=== PATIENT | male | born 1990 | race American Indian/Alaskan Native ===

== ENCOUNTER 2017-03-12 10:07 | Emergency (ER) | payer SELFPAY ==
[2017-03-12 10:13] VITALS: BP 116/73
--- NOTE | 2017-03-12 10:34 | Emergency Department Report ---
ED Dysuria HPI - HPI Chief Complaint: Pain General Stated Complaint: TINGLE WHEN URINATE Time Seen by Provider: 03/12/17 10:28 Duration: 2 Days Location of Discomfort: Other Severity: Mild Symptoms: Dysuria: Yes, Frequency: No, Suprapubic Pain: No, Flank Pain: No, Fever: No, Hematuria: No, Abdominal Pain: No, Previous UTI's: No Other History: NEW SEXUAL PARTNER 1 M AGO. NO DC. TINGLE W URINATION. CO KNEE PAIN OLD INJURY ED Review of Systems ROS: Stated complaint: LEFT KNEE PAIN Other details as noted in HPI Comment: All other systems reviewed and negative Genitourinary: other (TINGLE W URINATION) Musculoskeletal: other (L KNEE PAIN) ED Past Medical Hx - Past Medical History Previous Medical History?: No - Surgical History Past Surgical History?: No - Social History Smoking Status: Current Every Day Smoker Substance Use Type: Alcohol, Marijuana - Medications Home Medications: Home Medications Medication Instructions Recorded Confirmed Last Taken Type Cephalexin [Keflex] 500 mg PO TID #30 capsule 11/18/15 Unknown Rx Dysuria Exam - Exam General: Vital signs noted. No distress. Alert and acting appropriately. WDWN MALE AMBULATORY NO NEURO DEF KNEE FULL ROM GOOD PULSES NO EFFUSION OR SWELLING NO CREP NO SWELLING DISTAL GOOD PULSES RAPID CAP REFILL TINGLE W URINATION NO DC NEW SEX PARTNER Exam: Yes Moist Mucous Membranes, No CVA Tenderness, No Abdominal Tenderness, No Rigidity or Guarding ED Course Vital Signs 03/12/17 10:09 Temperature 98.1 F Pulse Rate 79 Respiratory 16 Rate Blood Pressure 116/73 O2 Sat by Pulse 100 Oximetry - Reevaluation(s) Reevaluation #1: 03/12/17 11:45 URINARY TINGLING NEW SEX PARTNER UA AND GC SENT PT CONCERNED FOR STD AND WANTS TX NO ABD PAIN NO CVA TENDERNESS NO RASH NO DC NO LESION Reevaluation #2: 03/12/17 11:47 CELL [id number] ED Medical Decision Making - Medical Decision Making SEE NOTE - Differential Diagnosis STI Critical care attestation.: If time is entered above; I have spent that time in minutes in the direct care of this critically ill patient, excluding procedure time. ED Disposition Clinical Impression: STD (male) Disposition: DC-01 TO HOME OR SELFCARE Is pt being admited?: No Does the pt Need Aspirin: No Condition: Stable Instructions: Safe Sex (ED) Referrals: PRIMARY CARE,MD [Primary Care Provider] - 3-5 Days ALY GARAY MD [Staff Physician] - 3-5 Days Time of Disposition: 11:46
[2017-03-12] MEDS ORDERED: ROCEPHIN IM ONE (11:45)
[2017-03-12] MEDS ORDERED: XYLOCAINE 1% MPF 5 mL INFILTRATI ONE (11:45)
[2017-03-12] MEDS ORDERED: ZITHROMAX PO ONE (11:45)
[2017-03-12 12:14] LABS: Bacteria,Urine 1+ /HPF (Negative); Bilirubin,Urine NEG (Negative); Blood,Urine NEG (Negative); Ketones,Urine NEG (Negative); Leukocyte Esterase,Urine MOD (Negative); Nitrite,Urine NEG (Negative); Protein,Urine <15 mg/dL mg/dL (Negative); Urobilinogen,Urine < 2.0 mg/dL (<2.0)
== END 2017-03-12 12:20 | disposition home or self-care (01) ==
LOC: ED 10:07
DX: A64 Unspecified sexually transmitted disease (principal); F17.200 Nicotine dependence, unspecified, uncomplicated; F12.10 Cannabis abuse, uncomplicated
CPT/HCPCS: 81001; 87591; 96372; 99282; J0696

== ENCOUNTER 2017-08-03 19:17 | Emergency (ER) | payer SELFPAY ==
[2017-08-03 22:11] VITALS: BP 112/55
--- NOTE | 2017-08-04 01:39 | Emergency Department Report ---
ED Male HPI - General Chief complaint: Urogenital-Male Stated complaint: PARTNER DXD WITH TRICH Time Seen by Provider: 08/04/17 00:40 Source: patient Mode of arrival: Ambulatory Limitations: No Limitations - History of Present Illness Initial comments: This is a 26 y.o. male that presents for treatment of STD exposure. Patient states his partner was diagnosed with trichomoniasis. He is requesting treatment for possible exposure. Denies penile discharge, dysuria, frequency, urgency, fever, pelvic pain, or low back pain. Radiation: none Severity scale (0 -10): 0 Improves with: none Worsens with: none new sexual partner denies other symptoms - Related Data Sexually active: Yes Previous Rx's Medication Instructions Recorded Last Taken Type Cephalexin [Keflex] 500 mg PO TID #30 capsule 11/18/15 Unknown Rx Allergies Allergy/AdvReac Type Severity Reaction Status Date / Time No Known Allergies Allergy Unverified 11/18/15 18:00 ED Review of Systems ROS: Stated complaint: PARTNER DXD WITH TRICH Other details as noted in HPI Constitutional: denies: chills, fever Respiratory: denies: cough, shortness of breath, wheezing Cardiovascular: denies: chest pain, palpitations Gastrointestinal: denies: abdominal pain, nausea, diarrhea Genitourinary: denies: urgency, dysuria Neurological: denies: headache, weakness, paresthesias Psychiatric: denies: anxiety, depression ED Past Medical Hx - Past Medical History Previous Medical History?: No - Surgical History Past Surgical History?: No - Social History Smoking Status: Never Smoker Substance Use Type: None - Medications Home Medications: Home Medications Medication Instructions Recorded Confirmed Last Taken Type Cephalexin [Keflex] 500 mg PO TID #30 capsule 11/18/15 Unknown Rx ED Physical Exam - General Limitations: No Limitations General appearance: alert, in no apparent distress - Respiratory Respiratory exam: Present: normal lung sounds bilaterally. Absent: respiratory distress, wheezes, rales, rhonchi, stridor, accessory muscle use, decreased breath sounds - Cardiovascular Cardiovascular Exam: Present: regular rate, normal rhythm, normal heart sounds. Absent: systolic murmur, diastolic murmur, rubs, gallop - GI/Abdominal GI/Abdominal exam: Present: soft, normal bowel sounds. Absent: distended, tenderness, guarding, rebound, rigid, organomegaly, mass - Neurological Exam Neurological exam: Present: alert, oriented X3, normal gait - Psychiatric Psychiatric exam: Present: normal affect, normal mood - Skin Skin exam: Present: warm, dry, intact, normal color. Absent: rash ED Course Vital Signs 08/03/17 22:07 Temperature 98.4 F Pulse Rate 66 Respiratory 18 Rate Blood Pressure 112/55 O2 Sat by Pulse 98 Oximetry ED Medical Decision Making - Medical Decision Making This is a 26 y.o. A.A. male that presents with recent exposure to trichomoniasis. Patient was examined by me. Denies symptoms. Informed by partner of being diagnosed with trichomoniasis. Discussed option for screening and treatment. Patient agreed to be empirically treated. Given metronidazole 2 g po in ER. Discharged home in stable condition. Discussed prevention options. F /U with PCP or Health Department for full STD screening. Critical care attestation.: If time is entered above; I have spent that time in minutes in the direct care of this critically ill patient, excluding procedure time. ED Disposition Clinical Impression: STD exposure Disposition: DC- TO HOME OR SELFCARE Is pt being admited?: No Does the pt Need Aspirin: No Condition: Stable Instructions: Safe Sex (ED), Sexually Transmitted Diseases (ED) Additional Instructions: Avoid drinking alcohol for 24 hours after taking antibiotics . Continue safe sexual intercourse. Follow up with Primary Care Provider or health department in 2-3 days for full screening. Referrals: [facility] [Outside] - 3-5 Days [facility] [Outside] - 3-5 Days [facility] [Outside] - 3-5 Days Forms: Work/School Release Form(ED) Time of Disposition: 01:44 Print Language: GEORGIAN
[2017-08-04] MEDS ORDERED: FLAGYL PO ONE (01:44)
== END 2017-08-04 01:50 | disposition home or self-care (01) ==
LOC: ED 19:17
DX: Z20.2 Contact with and (suspected) exposure to infections with a predominantly sexual mode of transmission (principal)
CPT/HCPCS: 99282

== ENCOUNTER 2018-07-28 02:09 | Emergency (ER) | payer SELFPAY ==
[2018-07-28 02:23] VITALS: BP 128/76
--- NOTE | 2018-07-28 07:58 | Emergency Department Report ---
ED Laceration HPI - HPI Chief Complaint: Wound/Laceration Stated Complaint: LEFT ARM LAC Time Seen by Provider: 07/28/18 07:04 Occurred When: Today Location: Upper Extremity Severity: mild Tetanus Status: Up to Date (2018) Laceration Symptoms: Yes Pain, No Foreign Body Sensation, No Numbness, No Weakness Other History: This is a 27-year-old male nontoxic, well nourished in appearance, no acute signs of distress presents to the ED with c/o of left forearm laceration that occurred this morning around 2 AM. Patient that he was at work and accidentally cut his forearm up with a blade. Patient denies any SI or HI. Patient denies any numbness, tingling. Patient denies any fever, chills, nausea, vomiting, chest pain instructed to breath. Patient denies any allergies significant past medical history. He is up-to-date with tetanus as of last year. ED Review of Systems ROS: Stated complaint: LEFT ARM LAC Other details as noted in HPI Constitutional: denies: chills, fever Eyes: denies: eye pain, eye discharge, vision change ENT: denies: ear pain, throat pain Respiratory: denies: cough, shortness of breath, wheezing Cardiovascular: denies: chest pain, palpitations Endocrine: no symptoms reported Gastrointestinal: denies: abdominal pain, nausea, diarrhea Genitourinary: denies: urgency, dysuria Musculoskeletal: denies: back pain, joint swelling, arthralgia Skin: denies: rash, lesions Neurological: denies: headache, weakness, paresthesias Psychiatric: denies: anxiety, depression Hematological/Lymphatic: denies: easy bleeding, easy bruising ED Past Medical Hx - Past Medical History Previous Medical History?: No - Surgical History Past Surgical History?: No - Social History Smoking Status: Never Smoker - Medications Home Medications: Home Medications Medication Instructions Recorded Confirmed Last Taken Type Cephalexin [Keflex] 500 mg PO TID #30 capsule 11/18/15 Unknown Rx Acetaminophen/Codeine [Tylenol 1 tab PO Q6H PRN #12 tab 07/28/18 Unknown Rx /Codeine # 3 tab] Ibuprofen [Motrin] 600 mg PO Q8H PRN #20 tablet 07/28/18 Unknown Rx Sulfamethoxazole/Trimethoprim 1 each PO BID #14 tablet 07/28/18 Unknown Rx [Bactrim DS TAB] Laceration Physical Exam - Exam General: Vital signs noted. No distress. Alert and acting appropriately. Wound Length (cm): 4 Laceration Location: Upper Extremity Full Body Front + Back: 1 - 4 cm superficial laceration. Laceration Exam: Yes Normal Distal CMS, No Foreign Body, No Exposed Tendon, Vessel, or Nerve, No Tendon Injury ED Course Vital Signs 07/28/18 02:13 Temperature 97.8 F Pulse Rate 95 H Respiratory 18 Rate Blood Pressure 128/76 O2 Sat by Pulse 95 Oximetry - Reevaluation(s) Reevaluation #1: 07/28/18 07:54 Patient is speaking in full sentences with no signs of distress noted. - Laceration /Wound Repair Left Arm Wound Location: upper extremity (left forearm) Wound Length (cm): 4 Wound's Depth, Shape: superficial Wound Explored: clean Irrigated w/ Saline (ccs): 40 Anesthesia: 1% Lidocaine Volume Anesthetic (ccs): 6 Wound Repaired With: sutures Suture Size/Type: 5:0, nylon Number of Sutures: 6 Layer Closure?: No Sterile Dressing Applied?: Yes Progress: Under sterile field, I used Betadine to clean the area. I then used 40 mL of normal saline to flush the area. I then used 1% lidocaine plain and injected 6 mL to the wound. I then used a 5-0 Ethilon to suture the laceration. Number of stitches 6. I then applied a sterile 4 x 4 with tape. Minimal bleeding noted but is under control. Patient tolerated procedure well with no signs of distress. ED Medical Decision Making - Medical Decision Making This is a 27-year-old male that presents with laceration. Patient is stable and was examined by me. The laceration suturing has been performed and has been performed and patient tolerated well. A sterile dressing has been applied. Patient was educated on proper wound care. Patient is discharged with Bactrim and Tylenol with codeine and was instructed not to operate any machinery while taking Tylenol with codeine due to drowsiness. Patient was instructed to return in 10 days for suture removal. Patient was instructed to refer to Follow-up with a primary care doctor in 3-5 days or if symptoms worsen and continue return to emergency room as soon as possible. At time of discharge, the patient does not seem toxic or ill in appearance. No acute signs of distress noted. Patient agrees to discharge treatment plan of care. No further questions noted by the patient. Critical care attestation.: If time is entered above; I have spent that time in minutes in the direct care of this critically ill patient, excluding procedure time. ED Disposition Clinical Impression: Laceration Disposition: DC-01 TO HOME OR SELFCARE Is pt being admited?: No Does the pt Need Aspirin: No Condition: Stable Instructions: Laceration (ED), Suture Care (ED), Acetaminophen/Codeine (By jose stock) Additional Instructions: Follow-up with a primary care doctor in 3-5 days or if symptoms worsen and continue return to emergency room as soon as possible. Do not operate any machinery while taking Tylenol with codeine as this may cause drowsiness. Return in 10 days for suture removal. Prescriptions: Sulfamethoxazole/Trimethoprim [Bactrim DS TAB] 1 each PO BID #14 tablet Ibuprofen [Motrin] 600 mg PO Q8H PRN #20 tablet PRN Reason: Pain Acetaminophen/Codeine [Tylenol /Codeine # 3 tab] 1 tab PO Q6H PRN #12 tab PRN Reason: Pain , Severe (7-10) Referrals: ERNESTO BENSON MD [Primary Care Provider] - 3-5 Days PRIMARY CAREMD [Referring] - 3-5 Days EDUARDO LEUNG MD [Staff Physician] - 3-5 Days [facility] [place] [facility]Outside] - 3-5 Days [facility] [Outside] - 3-5 Days Forms: Work/School Release Form(ED)
== END 2018-07-28 08:44 | disposition home or self-care (01) ==
LOC: ED 02:09
DX: S51.812A Laceration without foreign body of left forearm, initial encounter (principal); W26.8XXA Contact with other sharp object(s), not elsewhere classified, initial encounter; Y93.89 Activity, other specified; Y92.89 Other specified places as the place of occurrence of the external cause; Y99.8 Other external cause status